=== PATIENT | female | born 1990 | race Caucasian/White ===

== ENCOUNTER 2020-05-28 19:21 | Emergency (ER) | payer OTHER ==
[2020-05-28 19:25] VITALS: TEMP 98.5
[2020-05-28] MEDS ORDERED: SODIUM CHLORIDE 0.9% 500 ML 500 ML IV STA (19:29)
[2020-05-28] MEDS ORDERED: METOCLOPRAMIDE 5 MG/ML 2 ML VIAL IVP STA ×2 (19:29→20:13)
[2020-05-28] MEDS ORDERED: NITROGLYCERIN SL TABS 0.4 MG TAB SUBLINGUAL STA (19:29)
[2020-05-28] MEDS ORDERED: GLUCAGON 1 MG/ML VIAL IVP STA (19:29)
[2020-05-28] MEDS ORDERED: DIAZEPAM 5 MG/ML 2 ML INJ IVP STA (19:30)
--- NOTE | 2020-05-28 19:30 | ED ---
ENT HPI - General Chief complaint: ENT Stated complaint: Difficulty Swallowing Time Seen by Provider: 05/28/20 19:28 Source: patient Mode of arrival: ambulatory Limitations: no limitations - History of Present Illness Initial comments: Patient is a 30-year-old female with history of esophageal foreign bodies presenting to the emergency department with a chief complaint of a steak stuck in her throat. Patient states this typically happens to release once a day but it never gets to a point where she has to come to the emergency department. Patient reports earlier today she took a bite of a steak, even though a small, it still became lodged in her esophagus. Patient states she attempted to drink some fluids after with no success. Patient reports throwing up everything she attempts to swallow. She does report some discomfort becomes as peristalsis occurs in her esophagus. Patient states she's never been evaluated for her recurrent esophageal foreign bodies. States this has been an ongoing issue ever since her . This occurred about one hour prior to arrival. - Related Data Allergies Allergy/AdvReac Type Severity Reaction Status Date / Time No Known Allergies Allergy Verified 05/28/20 19:25 Review of Systems ROS Statement: Those systems with pertinent positive or pertinent negative responses have been documented in the HPI. ROS Other: All systems not noted in ROS Statement are negative. Past Medical History Additional Past Medical History / Comment(s): Kidney stone History of Any Multi-Drug Resistant Organisms: None Reported Past Surgical History: No Surgical Hx Reported Past Psychological History: No Psychological Hx Reported Smoking Status: Never smoker Past Alcohol Use History: None Reported Past Drug Use History: None Reported General Exam Limitations: no limitations General appearance: alert, in no apparent distress Head exam: Present: atraumatic, normocephalic, normal inspection Eye exam: Present: normal appearance, PERRL, EOMI. Absent: scleral icterus, conjunctival injection, nystagmus Pupils: Present: normal accommodation ENT exam: Present: normal exam, normal oropharynx, mucous membranes moist, TM's normal bilaterally, normal external ear exam Neck exam: Present: normal inspection, full ROM. Absent: tenderness Respiratory exam: Present: normal lung sounds bilaterally. Absent: respiratory distress, wheezes, rales, rhonchi, stridor, chest wall tenderness Cardiovascular Exam: Present: regular rate, normal rhythm, normal heart sounds GI/Abdominal exam: Present: soft. Absent: distended, tenderness, guarding, rebound Extremities exam: Present: normal inspection, full ROM, normal capillary refill. Absent: tenderness Back exam: Present: normal inspection, full ROM. Absent: tenderness, CVA tenderness (R), CVA tenderness (L) Neurological exam: Present: alert, oriented X3, normal gait Psychiatric exam: Present: normal affect, normal mood Skin exam: Present: warm, dry, intact, normal color Course Vital Signs 05/28/20 19:24 Temperature 98.5 F Pulse Rate 91 Respiratory 18 Rate Blood Pressure 138/96 O2 Sat by Pulse 100 Oximetry Medical Decision Making - Medical Decision Making Patient is a 30-year-old female with history of recurrent esophageal foreign body presenting to the emergency department with chief complaint of food stuck in her throat. Physical examination is unremarkable. Patient was given Valium, Reglan, nitro, glucagon. Afterward, she was asked to drink a carbonated soda. Patient reported that the foreign body was released and she could feel immediate relief. Patient was able to finish the whole can of soda without any difficulties. There was no vomiting. Advised to follow up with a GI specialist. Strict return parameters were thoroughly discussed with patient was understanding and agreeable. Case discussed with physician. Disposition Clinical Impression: Esophageal foreign body Disposition: HOME SELF-CARE Condition: Stable Instructions (If sedation given, give patient instructions): Esophageal Foreign Body (ED) Additional Instructions: Follow with a GI specialist. Return to emergency department if symptoms worsen. Is patient prescribed a controlled substance at d/c from ED?: No Referrals: Nonstaff,Physician [Primary Care Provider] - 1-2 days Juan Orlando MD [STAFF PHYSICIAN] - 1-2 days Time of Disposition: 20:28
[2020-05-28 20:49] VITALS: BP 125/49; PULSE 104; RESP 16
== END 2020-05-28 20:40 | disposition home or self-care (01) ==
LOC: EC 19:21
DX: T18.128A Food in esophagus causing other injury, initial encounter (principal); X58.XXXA Exposure to other specified factors, initial encounter
CPT/HCPCS: 99283; 96374; 96375; 96361; J1610; J3360

== ENCOUNTER 2020-09-11 20:11 | Emergency (ER) | payer OTHER ==
[2020-09-11 20:37] VITALS: TEMP 98.4
[2020-09-11] MEDS ORDERED: DIAZEPAM 5 MG/ML 2 ML INJ IVP STA (20:50)
[2020-09-11] MEDS ORDERED: GLUCAGON 1 MG/ML VIAL IVP STA (20:50)
[2020-09-11] MEDS ORDERED: METOCLOPRAMIDE 5 MG/ML 2 ML VIAL IVP STA (20:50)
--- NOTE | 2020-09-11 20:58 | ED ---
General Adult HPI - General Chief complaint: ENT Stated complaint: Poss meat stuck Time Seen by Provider: 09/11/20 20:39 Source: patient, RN notes reviewed Mode of arrival: ambulatory Limitations: no limitations - History of Present Illness Initial comments: 30-year-old female presents to the emergency room for a chief complaint of meat stuck in throat. Patient states about 2 hours prior to arrival she was eating steak and felt it get stuck in her throat. States was it was initially higher up and when she took a drink of pop it went further down. She denies any difficulty swallowing. Denies shortness of breath. States it isn't irritating feeling. Patient did have this happen before and came here for medication and it dislodged. Patient did not follow-up with GI. Patient denies any chance of . Patient has no other complaints at this time including shortness of breath, chest pain, abdominal pain, nausea or vomiting, headache, or visual changes. - Related Data Home Medications Medication Instructions Recorded Confirmed Lisdexamfetamine Dimesylate 50 mg PO DAILY 09/11/20 09/11/20 [Vyvanse] Tri Femynor 1 tab PO DAILY 09/11/20 09/11/20 Allergies Allergy/AdvReac Type Severity Reaction Status Date / Time No Known Allergies Allergy Verified 09/11/20 20:37 Review of Systems ROS Statement: Those systems with pertinent positive or pertinent negative responses have been documented in the HPI. ROS Other: All systems not noted in ROS Statement are negative. Past Medical History Additional Past Medical History / Comment(s): Kidney stone History of Any Multi-Drug Resistant Organisms: None Reported Past Surgical History: No Surgical Hx Reported Past Psychological History: No Psychological Hx Reported Smoking Status: Never smoker Past Alcohol Use History: None Reported Past Drug Use History: None Reported General Exam Limitations: no limitations General appearance: alert, in no apparent distress (Patient is in no distress. She is lying back in bed. No tripoding. No drooling. No respiratory distress.) Head exam: Present: atraumatic Eye exam: Present: normal appearance ENT exam: Present: normal exam, mucous membranes moist Neck exam: Present: normal inspection, full ROM. Absent: tenderness, meningismus, lymphadenopathy Respiratory exam: Present: normal lung sounds bilaterally. Absent: respiratory distress, wheezes, rales, rhonchi, stridor Cardiovascular Exam: Present: regular rate, normal rhythm, normal heart sounds GI/Abdominal exam: Present: soft, normal bowel sounds. Absent: distended, tenderness, guarding, rebound, rigid Course Vital Signs 09/11/20 20:34 Temperature 98.4 F Pulse Rate 82 Respiratory 20 Rate Blood Pressure 150/95 O2 Sat by Pulse 100 Oximetry Medical Decision Making - Medical Decision Making Patient was given IV medications including Reglan, Valium, and glucagon. She was then given carbonated beverage which she could not swallow and would vomit up. At this point GI was contacted. Glucose was removed. Patient recovered from procedure without any complications. Will be discharged home to follow up outpatient. - Lab Data Lab Results 09/11/20 Range/Units 22:25 Urine HCG, Qual Not Detected (Not Detectd) Disposition Clinical Impression: Esophageal foreign body Disposition: HOME SELF-CARE Condition: Good Instructions (If sedation given, give patient instructions): Esophageal Foreign Body (ED) Additional Instructions: Please follow up outpatient with primary care and GI. Return to the emergency room for any worsening symptoms. Is patient prescribed a controlled substance at d/c from ED?: No Referrals: Shraddha Plummer MD [Primary Care Provider] - 1-2 days Rhianna Sales MD [STAFF PHYSICIAN] - 1-2 days Time of Disposition: 23:25
[2020-09-11] MEDS ORDERED: SUCCINYLCHOLINE CHLORIDE 100 MG/5 ML SYR IV ONE (22:50)
[2020-09-11] MEDS ORDERED: PROPOFOL 10 MG/ML 20 ML VIAL IV ONE (22:50)
[2020-09-11] MEDS ORDERED: ONDANSETRON 4 MG/2 ML VIAL ONE (22:50)
[2020-09-11] MEDS ORDERED: LACTATED RINGERS 1,000 ML IV ONE (23:00)
--- NOTE | 2020-09-11 23:25 | CONS ---
CONSULTATION DATE OF DICTATION: 09/11/2020 REASON FOR CONSULTATION: Acute food impaction. HISTORY OF PRESENT ILLNESS: The patient is a 30-year-old pleasant white female who came to the emergency room with some dysphagia with food impaction. She was eating a piece of steak for dinner 3 hours ago and could not swallow any further. She came to the emergency room and was given Glucagon and Reglan, with no help. Hence we are consulted for an emergency upper endoscopy. The patient has been having intermittent dysphagia to solids for the last 4 years' duration. She had a similar episode about 6 months ago. She denies any heartburn, reports no odynophagia. PAST MEDICAL HISTORY: None. PAST SURGICAL HISTORY: None. MEDICATIONS AT HOME: control pills and multivitamins. ALLERGIES: NO KNOWN DRUG ALLERGIES. SOCIAL HISTORY: No smoking. No alcohol use. FAMILY HISTORY: Unremarkable. REVIEW OF SYSTEMS: CARDIOPULMONARY: She denies any chest pain. No shortness of breath. GENITOURINARY: No dysuria or hematuria. MUSCULOSKELETAL: Unremarkable. SKIN: Unremarkable. ENDOCRINE: Unremarkable. PSYCHIATRIC: Unremarkable. NEUROLOGY: Unremarkable. ENT/VISION: Unremarkable. CONSTITUTIONAL: No recent weight loss. No fever, chills, night sweats. PHYSICAL EXAMINATION: She appears comfortable. Blood pressure is 133/82, pulse rate 86 per minute. Afebrile. HEENT examination unremarkable. Conjunctivae pink. Sclerae anicteric. Oral cavity no lesions. NECK: No JVD or lymph node enlargement. CHEST: Clear to auscultation. HEART: Regular rate and rhythm. ABDOMEN: Soft. Bowel sounds are positive. No organomegaly. EXTREMITIES: No pedal edema. NEUROLOGIC: Alert and oriented x3. No focal deficits. LABS: No labs available. IMPRESSION: 1. Acute food impaction. 2. Intermittent dysphagia to solids for the last 4 years' duration. RECOMMENDATIONS: Will proceed with an upper endoscopy for foreign body removal. Discussed with the patient risks, benefits and complications of the procedure, and she is agreeable to it. Thank you for this consultation. MMODL / IJN: [id number] /
[2020-09-11 23:46] VITALS: BP 148/78; PULSE 78; RESP 18
--- NOTE | 2020-09-12 09:41 | PCN ---
PROCEDURE NOTE DATE OF DICTATION: September 11, 2020. BRIEF HISTORY: The patient is a 30-year-old pleasant white female came to the emergency room with acute food impaction. She was eating a piece of steak for dinner today and could not swallow any further. She has been having intermittent dysphagia to solids for the last 4 years duration and had a similar episode about 6 months ago. PROCEDURE PERFORMED: EGD with biopsy and foreign body removal. PREOPERATIVE DIAGNOSIS: Acute food impaction. PROCEDURE DESCRIPTION: After informed consent was obtained from the patient, the procedure was performed in the emergency room. Under general anesthesia, the upper endoscope was inserted into the mouth. Esophagus intubated without any difficulty and was gradually advanced to the distal esophagus. There was a piece of meat that was lodged in the distal esophagus. Using a snare, the piece of meat was gently withdrawn out of the mouth along with the scope. The scope was passed into the mouth and esophagus re-intubated without any difficulty and then was gradually advanced into the distal esophagus. There was a stricture noted in the distal esophagus and with gentle push I was able to advance the scope into the stomach and duodenal bulb and the second part of the duodenum appeared normal. Scope was then withdrawn to the stomach adequately insufflated with air and upon careful examination, the mucosa of the antrum, body, cardia and fundus appeared normal. There was small amount of retained food noted in the fundus of the stomach. Scope was then withdrawn to the esophagus. The GE junction was located at 39 cm from the incisors. There was a distal esophageal stricture with some mucosal erythema. There were thickened esophageal folds noted in the mid and distal esophagus suspicious for eosinophilic esophagitis and hence multiple biopsies were done from the mid and distal esophagus. Rest of the esophagus appeared normal. The patient tolerated the procedure well. IMPRESSION: 1. Distal esophageal stricture with food impaction, status post removal as described above. 2. Thickened esophageal folds, status post biopsy to rule out eosinophilic esophagitis. RECOMMENDATIONS: Findings of this examination were discussed with the patient's . At this time, we will await the biopsy results. She was advised to be on a soft diet for now. She will be seen in the office in 1-2 weeks. In the meantime, we will start her on Prilosec 20 mg twice daily. MMODL / IJN: [id number] /
== END 2020-09-11 23:43 | disposition home or self-care (01) ==
LOC: EC 20:11
DX: T18.128A Food in esophagus causing other injury, initial encounter (principal); X58.XXXA Exposure to other specified factors, initial encounter
CPT/HCPCS: 81025; 99284; 96374; 96375 ×2; J1610; J2765; J3360; 43239; 43247

== ENCOUNTER 2021-02-25 | Emergency (ER) | payer OTHER | END 2021-02-25 13:52 | disposition home or self-care (01) | CPT/HCPCS: 36415; 80053; 82150; 83605; 83690; 85025; 81001; 81025; 93975; 76830; 74177; 96360; 99284; Q9967 ==